=== PATIENT | male | born 1950 ===

== ENCOUNTER 2017-08-05 08:05 | Inpatient (IN) | payer OTHER, MEDICARE ==
[2017-08-05] MEDS ORDERED: Acetaminophen TAB* 325 MG PO PRN (19:02)
[2017-08-05] MEDS ORDERED: Senna TAB PO PRN (19:02)
--- NOTE | 2017-08-05 20:49 | HP ---
ADMISSION HISTORY AND PHYSICAL: DATE OF ADMISSION: 08/05/17 REASON FOR ADMISSION: Right-sided CVA with left hemiparesis. HISTORY OF PRESENT ILLNESS: Corbin Sommer is a 67-year-old male. According to the patient, on 07/31/17, he was at work. It was a Thursday night and work was largely deserted. The patient had eaten a dinner at work and was at the sink washing his dinner plate when his left arm suddenly went numb and he had trouble controlling it. He went to walk back to his office and his left foot caught on the rug and he fell over on to the ground. He had to struggle to get himself back up. The patient decided to drive himself home. He drove the 50 miles back to his house in [place] from his work site. While he was home, he had trouble getting in the front door. He called to his neighbor, the neighbor was able to help him get into the house, but then called 911. The patient was brought to [facility] in [place], [place]. He was already outside the window for tPA administration. 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 DICTATION ENDS ABRUPTLY [id number]/[facility] #: [id number] [facility] CENT[facility]ate
--- NOTE | 2017-08-05 21:31 | HP ---
ADMISSION HISTORY AND PHYSICAL: DATE OF ADMISSION: 08/05/17 REASON FOR ADMISSION: Right-sided CVA with left hemiparesis. HISTORY OF PRESENT ILLNESS: Corbin Sommer is a 67-year-old male. He has little in the way of past medical history. He was at his job at [employer] in [place] on 07/31/17. He had eaten at work late on a Thursday night. He was washing his dishes when he noticed he was having trouble moving his left hand. He decided to walk over to his office and his left foot caught on the rug and he tripped and fell landing on his left side. The patient was able to get up. He decided after getting to his office that he wanted to drive himself home. He drove home about 50 miles and did okay. When he got home; however, he noticed he had decreased hand coordination and could not get the keys to open the front door. He called over to his neighbor. The neighbor helped him into the house and got him to sit down, but then noticed he had left- sided weakness and left facial droop. 911 was called. He was brought to [facility]. By the time he got to the hospital he was outside the window for TPA. He had a CT of his head and neck done, which showed a 50% stenosis of the right PICA but no other defect noted. The next morning he was evaluated by Neurology and MRI of the brain was done. The MRI of the brain showed a subacute to acute infarct in the distribution of the right middle cerebral artery. He continued to have significant dysarthria and left-sided weakness. The patient was started on a soft diet with nectar thick liquids. The patient was put on aspirin a day as well as high dose Lipitor. He had an echo- cardiogram, which did not show any thrombus or chamber defects. He was seen by both Physical and Occupational Therapy and felt to have PT/OT as well as speech therapy needs. The patient was moving to the [facility]. Most of his children are in the area of the [facility]. His family had wanted him to come to [place] to do rehab. He is now being admitted for inpatient rehab so that he might return home to independent living. PAST MEDICAL HISTORY: Not really significant as mentioned previously. CURRENT MEDICATIONS: Include: 1. Baby aspirin every day. 2. Lipitor 80 mg daily. 3. He is on heparin for DVT prophylaxis as well as Ultram for pain in his left rib cage. When he fell, he feels like he might have broken a rib. ALLERGIES: He has no known drug allergies. SOCIAL HISTORY: He was a pipe smoker, rare alcohol use. As mentioned, he was still working for [employer] in [place], but was planning to move to [place] in [place] where he and his have bought a log cabin. It is a two - melida house with several steps to enter. He has a child living in [place] and another child living in the [facility] and one lives in [place]. He has 6 children and 15 grandchildren in total. REVIEW OF SYSTEMS: The patient reports no current shortness of breath or chest pain. PHYSICAL EXAMINATION The patient's temperature is 97.9, blood pressure is 131/78, pulse is 53, respirations 18. HEENT: His extraocular movements are intact. Tongue is midline. Neck was supple with no lymphadenopathy. Lungs sounded clear to auscultation bilaterally. Heart sounds are regular. S1 and S2 are audible. Abdomen is soft and nontender. His extremities - he had fairly normal tone in his left upper extremity and left lower extremity. Peripheral pulses were intact. His neurologic, he was awake, alert, oriented. Muscle strength was about 4/5 in the left arm and left leg. Right side was 5/ 5. His functional exam, he transfers with minimum assist. ASSESSMENT: Cerebrovascular accident with left hemiparesis. PLAN: Our plan is to integrate him into a comprehensive and therapeutic rehab program, we will have the following goals: 1. Physical Therapy will work with the patient. They are going to work on functional transfer training, ambulating training with a walker. 2. Occupational Therapy will see the patient, work on his activities of daily living including toileting and toilet transfers. 3. Speech Therapy will see the patient, work on his difficulty swallowing as well as assess his cognition and dysarthria. 4. SSRIs, including Prozac is indicated. 5. Heparin for DVT prophylaxis. 6. Continue aspirin and Lipitor for secondary stroke prevention. 7. health services director will be closely involved to make sure that any services and equipment that the patient requires are in place prior to discharge. 8. Advance directives: He is a full code. His is his healthcare proxy. 9. Home with appropriate services. ESTIMATED LENGTH OF STAY: 16 to 18 days. [id number]/[facility] #: [id number] BRITANY
[2017-08-05] MEDS: Heparin VIAL(*) 5000 UNITS/ML VIAL (FIVE THOUSAND) SUBCUT SCH (21:47)
[2017-08-05] MEDS: Docusate CAP* 100 MG PO SCH (21:52)
[2017-08-05] MEDS: traMADol TAB* 50 MG PO PRN (21:52)
[2017-08-06] MEDS: Heparin VIAL(*) 5000 UNITS/ML VIAL (FIVE THOUSAND) SUBCUT SCH ×3 (07:12→21:18)
[2017-08-06] MEDS: Multivitamins/Minerals TAB PO SCH (09:02)
[2017-08-06] MEDS: Docusate CAP* 100 MG PO SCH ×2 (09:02→21:18)
[2017-08-06] MEDS: Aspirin EC Low Dose* 81 MG TAB.EC PO SCH (09:02)
[2017-08-06] MEDS: Atorvastatin* 80 MG TAB PO SCH (17:13)
--- NOTE | 2017-08-06 22:27 | PN ---
Progress Note - Progress Note Date of Service: 08/06/17 Note: Corbin was visited. Therapy notes read and reviewed. He was tired after a day of therapy and the travel yesterday, but believes he did okay. May start Prozac soon Current Medications Acetaminophen (Tylenol Tab*) 650 mg PO Q6H PRN PRN Reason: FEVER/PAIN Aspirin (Aspirin Ec Low Dose*) 81 mg PO DAILY [facility] Last Admin: 08/06/17 09:02 Dose: 81 mg Atorvastatin Calcium (Lipitor*) 80 mg PO 1700 [facility] Last Admin: 08/06/17 17:13 Dose: 80 mg Docusate Sodium (Colace Cap*) 100 mg PO BID [facility] Last Admin: 08/06/17 21:18 Dose: 100 mg Heparin Sodium (Porcine) (Heparin Vial(*)) 5,000 units SUBCUT Q8HR [facility] Last Admin: 08/06/17 21:18 Dose: 5,000 units Multivitamins/Minerals (Theragran/Minerals Tab*) 1 tab PO DAILY [facility] Last Admin: 08/06/17 09:02 Dose: 1 tab Senna (Senokot Tab*) 2 tab PO BEDTIME PRN PRN Reason: CONSTIPATION Tramadol HCl (Ultram*) 50 mg PO Q6H PRN PRN Reason: PAIN - MODERATE Last Admin: 08/05/17 21:52 Dose: 50 mg Vital Signs Temp Pulse Resp BP Pulse Ox 97.8 F 62 22 127/70 95 08/06/17 17:39 08/06/17 17:39 08/06/17 17:39 08/06/17 17:39 08/06/17 17:39 EXAM: LUNGS: Clear HEART: Reg rhythm ABDOMEN: Soft, +BS NEUROLOGIC: Left arm about 4/5, left leg 4/5 ASSESSMENT/PLAN: 1. CVA with left hemiparesis: PT/OT/LACTATION SPECIALIST. ASA/Lipitor. Consider Prozac 2. Analgesia: Tramadol for rib pain 3. DVT Prophylaxis: Heparin S/Q 4. Advanced directives: Full Code 5. Dysphagia: Soft diet/thin liquids 6. Decreased cognition: LACTATION SPECIALIST
[2017-08-07] MEDS: Heparin VIAL(*) 5000 UNITS/ML VIAL (FIVE THOUSAND) SUBCUT SCH ×3 (05:05→22:13)
[2017-08-07 07:09] LABS: Hematocrit 41 % (42-52); Hemoglobin 14.3 g/dl (14.0-18.0); Mean Corpuscular HGB Conc 35 g/dl (31-36); Mean Corpuscular Hemoglobin 32 pg (27-31); Mean Corpuscular Volume 92 fL (80-94); Mean Platelet Volume 8 um3 (7.4-10.4); Red Blood Count 4.45 10^6/ul (4.0-5.4); Red Cell Distribution Width 13 % (10.5-15); White Blood Count 7.1 10^3/ul (3.5-10.8)
[2017-08-07 07:26] LABS: Albumin 3.7 g/dL (3.2-5.2); BUN/Creatinine Ratio 22.6 (8-20); Calcium 9.5 mg/dL (8.6-10.3); EGFR African American 116.9 (>60); EGFR Non-African American 90.9 (>60); Globulin 2.7 g/dL (2-4); Total Bilirubin 0.9 mg/dL (0.2-1.0); Total Protein 6.4 g/dL (6.4-8.9)
[2017-08-07] MEDS: Aspirin EC Low Dose* 81 MG TAB.EC PO SCH (08:19)
[2017-08-07] MEDS: Multivitamins/Minerals TAB PO SCH (08:19)
[2017-08-07] MEDS: Docusate CAP* 100 MG PO SCH ×2 (08:19→22:12)
--- NOTE | 2017-08-07 10:29 | PN ---
Progress Note - Progress Note Date of Service: 08/07/17 Note: Nursing and therapy notes reviewed. He thinks he is getting better. No chest pain, shortness of breath or abdominal pain. Some intermittent discomfort around left upper trapezius with muscle tightness. Worried about ability to play guitar. Acetaminophen (Tylenol Tab*) 650 mg PO Q6H PRN PRN Reason: FEVER/PAIN Aspirin (Aspirin Ec Low Dose*) 81 mg PO DAILY [facility] Last Admin: 08/07/17 08:19 Dose: 81 mg Atorvastatin Calcium (Lipitor*) 80 mg PO 1700 [facility] Last Admin: 08/06/17 17:13 Dose: 80 mg Docusate Sodium (Colace Cap*) 100 mg PO BID [facility] Last Admin: 08/07/17 08:19 Dose: 100 mg Heparin Sodium (Porcine) (Heparin Vial(*)) 5,000 units SUBCUT Q8HR [facility] Last Admin: 08/07/17 05:05 Dose: 5,000 units Multivitamins/Minerals (Theragran/Minerals Tab*) 1 tab PO DAILY [facility] Last Admin: 08/07/17 08:19 Dose: 1 tab Senna (Senokot Tab*) 2 tab PO BEDTIME PRN PRN Reason: CONSTIPATION Tramadol HCl (Ultram*) 50 mg PO Q6H PRN PRN Reason: PAIN - MODERATE Last Admin: 08/05/17 21:52 Dose: 50 mg Vital Signs Temp Pulse Resp BP Pulse Ox 98.8 F 49 16 129/83 93 08/07/17 05:03 08/07/17 05:03 08/07/17 05:03 08/07/17 05:03 08/07/17 08:24 EXAM: GEN: no acute distress. alert and appropriate. LUNGS: Clear bilaterally HEART: Regular ABDOMEN: Soft, +BS, non-tender, non-distended NEUROLOGIC: Motor left arm and left leg 4+/5. Normal sensation. Some left neglect. Laboratory Results - last 24 hr 08/07/17 08/07/17 06:47 06:48 WBC 7.1 RBC 4.45 Hgb 14.3 Hct 41 L MCV 92 MCH 32 H MCHC 35 RDW 13 Plt Count 192 MPV 8 Neut % (Auto) 58.5 Lymph % (Auto) 25.4 [place] % (Auto) 10.7 H Eos % (Auto) 4.8 Baso % (Auto) 0.6 Absolute Neuts (auto) 4.2 Absolute Lymphs (auto) 1.8 Absolute Monos (auto) 0.8 Absolute Eos (auto) 0.3 Absolute Basos (auto) 0 Absolute Nucleated RBC 0 Nucleated RBC % 0 Sodium 137 Potassium 4.0 Chloride 105 Carbon Dioxide 26 Anion Gap 6 BUN 19 Creatinine 0.84 Est GFR ( Amer) 116.9 Est GFR (Non-Af Amer) 90.9 BUN/Creatinine Ratio 22.6 H Glucose 87 Calcium 9.5 Total Bilirubin 0.90 AST 32 ALT 32 Alkaline Phosphatase 75 Total Protein 6.4 Albumin 3.7 Globulin 2.7 Albumin/Globulin Ratio 1.4 ASSESSMENT/PLAN: 67yo man right MCA CVA with left hemiplegia and neglect 1. CVA with left hemiparesis: PT/OT/SCRUM PROJECT MANAGER. ASA/Lipitor. Consider Prozac 2. Analgesia: Tramadol for rib pain. Warm pack prn for upper back. 3. Decreased cognition: SCRUM PROJECT MANAGER has picked up for dysarthria and delayed recall. 4. Dysphagia: Soft diet/thin liquids 5. DVT Prophylaxis: Heparin S/Q 6. Advanced directives: Full Code 7. Estimated LOS: interdisciplinary plan of care meeting today
--- NOTE | 2017-08-07 12:14 | PMRUTEAM ---
PMRU: Goals Current Status: Physical Therapy: Current Status Bed Mobility Assistance Independent Transfer Moblility Assistance min A Transfer/Bed Mobility Rolling Walker Recommended Devices Ambulation Assistance min A Ambulation Assistive Devices Rolling Walker Stairs Assistance no tested Stairs Recommended Devices One Rail Number of Stairs 0 Occupational Therapy: Current Status Upper Body Dressing Supervision,Min Assist Lower Body Dressing Total Assist Bathing Max Asst Toileting Mod Assist,Total Assist Eating Supervision Speech therapy current status: mild dysarthria and decreased delayed recall. Social Work: Current Status Discharge Plan return home with home care svs and family support Potential for Family Training pt's is involved and supportive Anticipated Discharge Home Destination Discharge With home care svs and family support Goals: Physical Therapy: Initial Goals Bed Mobility Assistance Independent Transfer Mobility Assistance Independent Transfer/Bed Mobility None,Straight Cane Recommended Devices Ambulation Independent Ambulation Recommended Devices Straight Cane Ambulation Distance 150 Stairs Assistance Independent Stair Recommended Devices Straight Cane,One Rail Number of Stairs 14 Occupational Therapy: Initial Goals Goals to be Completed in (Days 14-21 ) Upper Body Bathing Routine Modified Independent with Lower Body Bathing Routine Modified Independent with Upper Body Dressing Routine Modified Independent with Lower Body Dressing Routine Modified Independent with Toilet Hygeine and Clothing Modified Independent with Management Routine Toilet Transfer Routine Modified Independent with Step-In Shower Transfer Modified Independent with Routine Functional Transfers for ADL Modified Independent with Grooming Routine Independent,Modified Independent with Feeding Routine Independent,Modified Independent with Speech: Goals Speech Goal 1 Motor Speech Speech Evaluation Status Goal 85% intelligibility 1 Speech Current Status Goal 1 85% intelligibility Goal 1 Comments LTO: The patient will increase intelligibility to 95%. ST) The patient will complete motor speech tasks with at least 95% accuracy, including oral motor exercises, diadochokinetic rate tasks, and respiration tasks. Speech Goal 2 Cognitive-Linguistic Speech Goal 2 Evaluation 33% delayed recall, no cues Status Speech Goal 2 Current Status 33% delayed recall, no cues Speech Goal 2 Comments LTO: The patient will complete functional memory tasks with greater than 80% accuracy. ST) The patient will recall 4/4 memory stratgies independently. 1) The patient will complete memory tasks ( including delayed recall) with at least 80% accuracy, with use of compensatory strategies as needed. Social Work: Goals Discharge Plan return home with home care svs and family support Potential for Family Training pt's is involved and supportive Anticipated Discharge Home Destination Discharge With home care svs and family support Care Plan: Care Plan ADL's - Improve/Maintain Start: 08/05/17 18:31 Freq: DAILY Status: Active Target: Protocol: Activity Type Activity Date Activity User E-Sign Co-Sign Detail Recorded Client Recorded Date Recorded By Document 08/06/17 15:47 [id number] 08/06/17 15:48 [id number] 08/06/17 15:47 PMRU Outcome: ADL's/ADL Transfers Orders/Interventions Occupational Therapy Evaluation & Treatment Communication Tool in Patient Room Device Yes Address Deficits Secondary To: CVA Patient to receive OT 5x/wk for 60-120 Therex min/day Self Care Management Group Therapy Neuromuscular ReEducation UE/LE ADL's with Assist Yes: [place] ADL Transfers with Assist Yes: [place] Toileting: Transfers,Clothing Management Yes: [place] ,Hygeine w/Assist Progression Toward Outcome/Goals Progressing Outcome/Goals Met Pt participated well in OT evaluation, motivated to participate to improve function. Pt with goal to improve use of LUE in order to be able to play his guitar . Communication-Improve/Maintain Start: 08/06/17 20:05 Freq: DAILY Status: Active Target: Protocol: Activity Type Activity Date Activity User E-Sign Co-Sign Detail Recorded Client Recorded Date Recorded By Document 08/07/17 11:37 [id number] 08/07/17 11:37 [id number] 08/07/17 11:37 PMRU Outcome: Communication/Cognitive Status Outcome/Goals Other Other Outcomes/Goals 1) The patient will complete motor speech tasks with at least 95% accuracy, including oral motor exercises , diadochokinetic rate tasks, and respiration tasks. 2) The patient will recall 4/4 memory stratgies independently. 3) The patient will complete memory tasks ( including delayed recall) with at least 80% accuracy, with use of compensatory strategies as needed. DVT Prophylaxis- Improve/Maintain Start: 08/05/17 18:31 Freq: DAILY Status: Active Target: Protocol: Activity Type Activity Date Activity User E-Sign Co-Sign Detail Recorded Client Recorded Date Recorded By Document 08/07/17 11:37 [id number] [id number] 08/07/17 11:37 [id number] 08/07/17 11:37 PMRU Outcome: DVT Prophylaxis Outcome/Goals Remains Free of DVT Demonstrates Knowledge of DVT Prevention/ Treatment TEDS Stockings on Every AM, Off at HS Progression Toward Outcome/Goals Progressing Discharge Planning - Improve/Maintain Start: 08/05/17 18:31 Freq: DAILY Status: Active Target: Protocol: Activity Type Activity Date Activity User E-Sign Co-Sign Detail Recorded Client Recorded Date Recorded By Document 08/07/17 11:37 [id number] [id number] 08/07/17 11:37 [id number] 08/07/17 11:37 PMRU Outcome: Discharge Planning Identify Patient Needs yes Update Patient Family No Outcome/Goals Demonstrates Understanding of Discharge Plan Progression Toward Outcome/Goals Progressing /GI-Improve/Maintain Start: 08/05/17 18:31 Freq: DAILY Status: Active Target: Protocol: Activity Type Activity Date Activity User E-Sign Co-Sign Detail Recorded Client Recorded Date Recorded By Document 08/07/17 11:37 [id number] 08/07/17 11:37 [id number] 08/07/17 11:37 PMRU Outcome: Genitourinary/ Gastrointestinal Genitourinary- Outcome/Goals Maintain/ Achieve Urinary Continence Maintain/ Achieve Adequate Urinary Output Gastrointestinal-Outcome/Goals Maintain/ Achieve Bowel Regularity in Accordance with Pt's Baseline Prevent Constipation Progression Toward Outcome/Goals - Progressing Progression Toward Outcome/Goals - GI Progressing Mobility- Improve/Maintain Start: 08/05/17 18:31 Freq: DAILY Status: Active Target: Protocol: Activity Type Activity Date Activity User E-Sign Co-Sign Detail Recorded Client Recorded Date Recorded By Document 08/06/17 17:31 [id number] 08/06/17 17:33 [id number] 08/06/17 17:31 PMRU Outcome: Mobility Physical Therapy Evaluation and Yes Treatment Activity OOB with Assistance Yes WBAT Yes Device Yes Assistance Yes Patient to be seen 5x/wk for 60-120 min/ Therex day for: Mobility Training Gait Training W/C Mobility Balance Outcome/Goals Maintain/ Achieve Baseline Mobility Status Improve Mobility Status Demonstrates Proper Use of Assistive Devices Free from Complications of Immobility Bed Mobility Yes: independent Transfers Yes: independet with/without SC Gait x ft Yes: independent with SC 150' Up/Down Stairs Yes: independet up/down 14 stairs with 1 rail and/or SC Neurological- Improve/Maintain Start: 08/05/17 18:31 Freq: DAILY Status: Active Target: Protocol: Activity Type Activity Date Activity User E-Sign Co-Sign Detail Recorded Client Recorded Date Recorded By Document 08/07/17 11:37 [id number] 08/07/17 11:37 [id number] 08/07/17 11:37 PMRU Outcome: Neurological Weakness/Aphasia Weakness Left Side Outcome/Goals Improve Neurological Status Demonstrate Knowledge of Prevention/Tx of Neuro Disorders/ Complication Maintain/ Improve Strength/ROM Progression Toward Outcome/Goals Progressing Safety- Improve/Maintain Start: 08/05/17 18:31 Freq: DAILY Status: Active Target: Protocol: Activity Type Activity Date Activity User E-Sign Co-Sign Detail Recorded Client Recorded Date Recorded By Document 08/07/17 11:37 [id number] [id number] 08/07/17 11:37 [id number] 08/07/17 11:37 PMRU Outcome: Safety Outcome/Goals Remain Free of Injury or Harm Cooperates with Safety Measures for Least Restrictive Environment Prevent Falls/ Injury Progression Toward Outcome/Goals Progressing Outcome/Goals Met Comment PA in place Medicine Note: Length of Stay: [2.5 weeks] Anticipated Discharge Destination: Home Tentative Discharge Date: [08/25/17] Discharged to: [home]
[2017-08-07] MEDS: Atorvastatin* 80 MG TAB PO SCH (17:11)
[2017-08-07] MEDS: traMADol TAB* 50 MG PO PRN (17:17)
[2017-08-08] MEDS: Heparin VIAL(*) 5000 UNITS/ML VIAL (FIVE THOUSAND) SUBCUT SCH ×3 (05:26→21:47)
[2017-08-08] MEDS: Aspirin EC Low Dose* 81 MG TAB.EC PO SCH (09:28)
[2017-08-08] MEDS: Multivitamins/Minerals TAB PO SCH (09:28)
[2017-08-08] MEDS: Docusate CAP* 100 MG PO SCH ×2 (09:28→21:55)
--- NOTE | 2017-08-08 10:42 | PN ---
Progress Note - Progress Note Date of Service: 08/08/17 Note: Nursing and therapy notes reviewed. Staff notes intermittently incontinent of urine. No chest pain, shortness of breath or abdominal pain. Acetaminophen (Tylenol Tab*) 650 mg PO Q6H PRN PRN Reason: FEVER/PAIN Aspirin (Aspirin Ec Low Dose*) 81 mg PO DAILY [facility] Last Admin: 08/08/17 09:28 Dose: 81 mg Atorvastatin Calcium (Lipitor*) 80 mg PO 1700 [facility] Last Admin: 08/07/17 17:11 Dose: 80 mg Docusate Sodium (Colace Cap*) 100 mg PO BID [facility] Last Admin: 08/08/17 09:28 Dose: Not Given Heparin Sodium (Porcine) (Heparin Vial(*)) 5,000 units SUBCUT Q8HR [facility] Last Admin: 08/08/17 05:26 Dose: 5,000 units Multivitamins/Minerals (Theragran/Minerals Tab*) 1 tab PO DAILY [facility] Last Admin: 08/08/17 09:28 Dose: 1 tab Senna (Senokot Tab*) 2 tab PO BEDTIME PRN PRN Reason: CONSTIPATION Tramadol HCl (Ultram*) 50 mg PO Q6H PRN PRN Reason: PAIN - MODERATE Last Admin: 08/07/17 17:17 Dose: 50 mg Vital Signs Temp Pulse Resp BP Pulse Ox 99.7 F 49 20 119/65 94 08/08/17 05:29 08/08/17 05:29 08/08/17 05:29 08/08/17 05:29 08/08/17 05:29 EXAM: GEN: no acute distress. alert and appropriate. LUNGS: Clear bilaterally HEART: Regular ABDOMEN: Soft, +BS, non-tender, non-distended NEUROLOGIC: Motor left arm and left leg 4+/5. Normal sensation. Some left neglect. ASSESSMENT/PLAN: 67yo man right MCA CVA with left hemiplegia and neglect 1. CVA with left hemiparesis: PT/OT/EDUCATIONAL ADMINISTRATION TEACHER. ASA/Lipitor. Consider Prozac 2. Analgesia: Tramadol for rib pain. Warm pack prn for upper back. 3. Decreased cognition: EDUCATIONAL ADMINISTRATION TEACHER for dysarthria and delayed recall. 4. Dysphagia: Soft diet/thin liquids 5. Urinary incontinence: check UA and PVRs. 6. DVT Prophylaxis: Heparin S/Q 7. Advanced directives: Full Code 8. Estimated LOS: I d/w patient after IPOC meeting yesterday anticipate d/c .
[2017-08-08 16:53] LABS: Urine Bilirubin Negative (Negative); Urine Glucose Negative (Negative); Urine Nitrite Negative (Negative)
[2017-08-08] MEDS: Atorvastatin* 80 MG TAB PO SCH (17:34)
[2017-08-09] MEDS: Heparin VIAL(*) 5000 UNITS/ML VIAL (FIVE THOUSAND) SUBCUT SCH ×3 (05:26→21:46)
[2017-08-09] MEDS: Docusate CAP* 100 MG PO SCH ×2 (08:16→21:47)
[2017-08-09] MEDS: Multivitamins/Minerals TAB PO SCH (08:16)
[2017-08-09] MEDS: Aspirin EC Low Dose* 81 MG TAB.EC PO SCH (08:16)
--- NOTE | 2017-08-09 09:44 | PN ---
Progress Note - Progress Note Date of Service: 08/09/17 Note: Patient still with urinary urgency. Nursing notes reviewed. UA was negative, but no PVRs measured yet. No chest pain, shortness of breath or abdominal pain. Yesterday and today asks if can leave on Sundays to do finances at home and advised he cannot. Vital Signs Temp Pulse Resp BP Pulse Ox 98.2 F 51 20 133/89 95 08/09/17 05:12 08/09/17 05:12 08/09/17 05:12 08/09/17 05:12 08/09/17 05:12 EXAM: GEN: no acute distress. alert and appropriate. LUNGS: Clear bilaterally HEART: Regular ABDOMEN: Soft, +BS, non-tender, non-distended NEUROLOGIC: Motor left arm and left leg 4+/5. Normal sensation. Some left neglect. Laboratory Results - last 24 hr 08/08/17 15:55 Urine Color Yellow Urine Appearance Cloudy Urine pH 7.0 Ur Specific [place] 1.019 Urine Protein Negative Urine Ketones Negative Urine Blood Negative Urine Nitrate Negative Urine Bilirubin Negative Urine Urobilinogen Negative Ur Leukocyte Esterase Negative Urine Glucose Negative ASSESSMENT/PLAN: 67yo man right MCA CVA with left hemiplegia and neglect 1. CVA with left hemiparesis: PT/OT/NIGHT MANAGER. ASA/Lipitor. Consider Prozac 2. Analgesia: Tramadol for rib pain. Warm pack prn for upper back. 3. Decreased cognition: NIGHT MANAGER for dysarthria and delayed recall. 4. Dysphagia: Soft diet/thin liquids 5. Urinary incontinence: check PVRs. 6. DVT Prophylaxis: Heparin S/Q 7. Advanced directives: Full Code 8. Estimated LOS: anticipate d/c 08/25.
[2017-08-09] MEDS: Atorvastatin* 80 MG TAB PO SCH (16:56)
[2017-08-10] MEDS: Heparin VIAL(*) 5000 UNITS/ML VIAL (FIVE THOUSAND) SUBCUT SCH ×3 (04:57→21:48)
[2017-08-10] MEDS: Aspirin EC Low Dose* 81 MG TAB.EC PO SCH (07:29)
[2017-08-10] MEDS: Multivitamins/Minerals TAB PO SCH (07:29)
[2017-08-10] MEDS: Docusate CAP* 100 MG PO SCH ×2 (07:29→21:48)
[2017-08-10] MEDS: Atorvastatin* 80 MG TAB PO SCH (17:35)
[2017-08-11] MEDS: Heparin VIAL(*) 5000 UNITS/ML VIAL (FIVE THOUSAND) SUBCUT SCH ×3 (05:00→21:32)
[2017-08-11] MEDS: Docusate CAP* 100 MG PO SCH ×3 (08:21→20:05)
[2017-08-11] MEDS: Aspirin EC Low Dose* 81 MG TAB.EC PO SCH (08:21)
[2017-08-11] MEDS: Multivitamins/Minerals TAB PO SCH (08:21)
--- NOTE | 2017-08-11 12:33 | PMRUTEAM ---
PMRU: Goals Current Status: Nursing: Current Status Skin Deviations [No Skin Other Issues] Skin Deviation Description [No no skin issues Skin Issues] Physical Therapy: Current Status Bed Mobility Assistance Supervision Transfer Moblility Assistance Supervision,Contact Guard Assist Transfer/Bed Mobility None,Rolling Walker Recommended Devices Transfer Mobility Comment Pt. is able to perform a SPT with or without an assistive device. Ambulation Assistance Supervision,Contact Guard Assist Ambulation Assistive Devices Rolling Walker Number of Feet Patient 300' Ambulated Stairs Assistance Supervision,Contact Guard Assist Stairs Recommended Devices Two Rails Number of Stairs 5 Occupational Therapy: Current Status Upper Body Dressing Supervision,Min Assist Lower Body Dressing Mod Assist Lower Body Dressing Progress starting to learn AE Bathing Contact Guard Assist Bathing Progress with v/c's for safety Toileting Min Assist,Mod Assist Toilet Transfer Contact Guard Assist Shower Transfer Contact Guard Assist Shower Transfer Progress +grab bars Eating Supervision Eating Progress setup prn Rec Therapy: Current Status Summary of Assessment and RT assessment complete and pt. is aware of RT Clinical Impression services. Pt. has leisure material and is open to continued leisure visits. Treatment Goals Pt. will engage in leisure activities while on the unit. Treatment Plan Provide RT services and encourage involvement. Social Work: Current Status Discharge Plan return home with home care svs and family support Potential for Family Training pt's is involved and supportive Anticipated Discharge Home Destination Discharge With home care svs and family support Nutrition: Current Status Monitoring Pt s/p CVA with left hemiparesis. Eating 90-100% of meals; soft solids and thin liquids recommended per SIGN MAKER. Pt eating independently; occ needs containers opened. BMs 08/09; 08/10. Skin intact; [place] 16-19 (low risk for breakdown). Appears to be meeting needs at this time; full nutrition assessment to follow per protocol. Speech: Current Status Assessment Patient progressing with motor speech and memory tasks despite fatigue this date. He will continue to benefit from skilled SIGN MAKER services to increase function and independence of daily tasks. Goals: Physical Therapy: Initial Goals Bed Mobility Assistance Independent Transfer Mobility Assistance Independent Transfer/Bed Mobility None,Straight Cane Recommended Devices Ambulation Independent Ambulation Recommended Devices Straight Cane Ambulation Distance 150 Stairs Assistance Independent Stair Recommended Devices Straight Cane,One Rail Number of Stairs 14 Physical Therapy: Updated Goals Bed Mobility Assistance Independent Transfer Mobility Assistance Independent Transfer/Bed Mobility Rolling Walker Recommended Devices Ambulation Assistance Independent Ambulation Assistive Devices Rolling Walker Ambulation Distance (ft) 300 Stairs Assistance Independent Stairs Recommended Devices One Rail,Two Rails Number of Stairs 12 Occupational Therapy: Initial Goals Goals to be Completed in (Days 12-18 ) Upper Body Bathing Routine Modified Independent with Lower Body Bathing Routine Modified Independent with Upper Body Dressing Routine Modified Independent with Lower Body Dressing Routine Modified Independent with Toilet Hygeine and Clothing Modified Independent with Management Routine Toilet Transfer Routine Modified Independent with Step-In Shower Transfer Modified Independent with Routine Functional Transfers for ADL Modified Independent with Grooming Routine Independent,Modified Independent with Feeding Routine Independent,Modified Independent with Nutrition: Goals Intervention Goals 1. Pt will tolerate least restrictive diet texture without difficulty chewing 2. Intake will remain adequate to maintain stable wt and skin integrity 3. Pt will maintain regular bowel pattern without constipation (or diarrhea) Speech: Goals Speech Goal 1 Motor Speech Speech Evaluation Status Goal 85% intelligibility 1 Speech Current Status Goal 1 See below Goal 1 Comments LTO: The patient will increase intelligibility to 95%. ST) The patient will complete motor speech tasks with at least 95% accuracy, including oral motor exercises, diadochokinetic (DDK) rate tasks, and respiration tasks. Status: - Patient unable to locate previous HEP handout for oral motor exercises. Oral motor exercises targeting labiobuccal strength completed following SIGN MAKER model with success. - DDK: Short paragraph level with 80% accuracy. As paragraph advanced patient demonstrated decreased volume and a decrease in intelligibility . Required continuous cueing for proper breathing to increase vocal volume and to overarticulate to increase intelligibility. Ongoing. Speech Goal 2 Cognitive-Linguistic Speech Goal 2 Evaluation 33% delayed recall, no cues Status Speech Goal 2 Current Status 33% delayed recall, no cues Speech Goal 2 Comments LTO: The patient will complete functional memory tasks with greater than 80% accuracy. ST) The patient will recall 4/4 memory strategies independently. Status: Not directly targeted this date. Ongoing. 2) The patient will complete memory tasks ( including delayed recall) with at least 80% accuracy, with use of compensatory strategies as needed. Status: - Patient read paragraph aloud and answered 5/5 follow-up questions about details in the paragraph with success. Patient stated he was familiar with topic and used previous knowledge to assist him. Will monitor with different topic to accurately assess memory skills. Ongoing. Patient read multiple paragraphs aloud without difficulty scanning or with left attention. Will continue to monitor. Social Work: Goals Discharge Plan return home with home care svs and family support Potential for Family Training pt's is involved and supportive Anticipated Discharge Home Destination Discharge With home care svs and family support Care Plan: Care Plan ADL's - Improve/Maintain Start: 08/05/17 18:31 Freq: DAILY Status: Active Target: Protocol: Activity Type Activity Date Activity User E-Sign Co-Sign Detail Recorded Client Recorded Date Recorded By Document 08/10/17 14:18 [id number] 08/10/17 14:19 [id number] 08/10/17 14:18 PMRU Outcome: ADL's/ADL Transfers Orders/Interventions Occupational Therapy Evaluation & Treatment Communication Tool in Patient Room Device Yes Address Deficits Secondary To: CVA Patient to receive OT 5x/wk for 60-120 Therex min/day Self Care Management Group Therapy Neuromuscular ReEducation UE/LE ADL's with Assist Yes: [place] ADL Transfers with Assist Yes: [place] Toileting: Transfers,Clothing Management Yes: [place] ,Hygeine w/Assist Progression Toward Outcome/Goals Progressing Outcome/Goals Met Pt participated well, balance continues to improve, pt attempting to use LUE, but with difficulty at times during functional tasks due to decreased coordination. Communication-Improve/Maintain Start: 08/06/17 20:05 Freq: DAILY Status: Active Target: Protocol: Activity Type Activity Date Activity User E-Sign Co-Sign Detail Recorded Client Recorded Date Recorded By Document 08/11/17 11:40 [id number] [email or web address] 08/11/17 11:40 [id number] 08/11/17 11:40 PMRU Outcome: Communication/Cognitive Status Outcome/Goals Other Other Outcomes/Goals 1) The patient will complete motor speech tasks with at least 95% accuracy, including oral motor exercises , diadochokinetic rate tasks, and respiration tasks. 2) The patient will recall 4/4 memory stratgies independently. 3) The patient will complete memory tasks ( including delayed recall) with at least 80% accuracy, with use of compensatory strategies as needed. Progression Toward Outcomes/Goals Progressing Outcome/Goals Met Comment 1) Patient unable to locate previous HEP handout for oral motor exercises. Oral motor exercises targeting labiobuccal strength completed following SIGN MAKER model with success. - DDK: Short paragraph level with 80% accuracy. As paragraph advanced patient demonstrated decreased volume and a decrease in intelligibility . Required continuous cueing for proper breathing to increase vocal volume and to overarticulate to increase intelligibility . 3) 100% for paragraph recall of familiar topic DVT Prophylaxis- Improve/Maintain Start: 08/05/17 18:31 Freq: DAILY Status: Active Target: Protocol: Activity Type Activity Date Activity User E-Sign Co-Sign Detail Recorded Client Recorded Date Recorded By Document 08/11/17 00:09 [id number] 08/11/17 00:10 [id number] 08/11/17 00:09 PMRU Outcome: DVT Prophylaxis Outcome/Goals Remains Free of DVT Complies with DVT Prophylaxis /Treatment Demonstrates Knowledge of DVT Prevention/ Treatment TEDS Stockings on Every AM, Off at HS Progression Toward Outcome/Goals Progressing Discharge Planning - Improve/Maintain Start: 08/05/17 18:31 Freq: DAILY Status: Active Target: Protocol: Activity Type Activity Date Activity User E-Sign Co-Sign Detail Recorded Client Recorded Date Recorded By Document 08/11/17 00:09 [id number] 08/11/17 00:10 [id number] 08/11/17 00:09 PMRU Outcome: Discharge Planning Identify Patient Needs yes Update Patient Family No Outcome/Goals Demonstrates Understanding of Discharge Plan Progression Toward Outcome/Goals Progressing /GI-Improve/Maintain Start: 08/05/17 18:31 Freq: DAILY Status: Active Target: Protocol: Activity Type Activity Date Activity User E-Sign Co-Sign Detail Recorded Client Recorded Date Recorded By Document 08/11/17 00:09 [id number] 08/11/17 00:10 [id number] 08/11/17 00:09 PMRU Outcome: Genitourinary/ Gastrointestinal Genitourinary- Outcome/Goals Maintain/ Achieve Urinary Continence Maintain/ Achieve Adequate Urinary Output Gastrointestinal-Outcome/Goals Maintain/ Achieve Bowel Regularity in Accordance with Pt's Baseline Prevent Constipation Laxatives as Ordered Progression Toward Outcome/Goals - Progressing Progression Toward Outcome/Goals - GI Progressing Mobility- Improve/Maintain Start: 08/05/17 18:31 Freq: DAILY Status: Active Target: Protocol: Activity Type Activity Date Activity User E-Sign Co-Sign Detail Recorded Client Recorded Date Recorded By Document 08/08/17 17:23 [id number] 08/08/17 17:23 [id number] 08/08/17 17:23 PMRU Outcome: Mobility Physical Therapy Evaluation and Yes Treatment Activity OOB with Assistance Yes WBAT Yes Device Yes Assistance Yes Patient to be seen 5x/wk for 60-120 min/ Therex day for: Mobility Training Gait Training W/C Mobility Balance Outcome/Goals Maintain/ Achieve Baseline Mobility Status Improve Mobility Status Demonstrates Proper Use of Assistive Devices Free from Complications of Immobility Progression Toward Outcome/Goals Progressing Bed Mobility Yes: independent Transfers Yes: independet with/without SC Gait x ft Yes: independent with SC 150' Up/Down Stairs Yes: independet up/down 14 stairs with 1 rail and/or SC Neurological- Improve/Maintain Start: 08/05/17 18:31 Freq: DAILY Status: Active Target: Protocol: Activity Type Activity Date Activity User E-Sign Co-Sign Detail Recorded Client Recorded Date Recorded By Document 08/11/17 00:09 [id number] 08/11/17 00:10 [id number] 08/11/17 00:09 PMRU Outcome: Neurological Weakness/Aphasia Weakness Left Side Outcome/Goals Improve Neurological Status Demonstrate Knowledge of Prevention/Tx of Neuro Disorders/ Complication Maintain/ Improve Strength/ROM Progression Toward Outcome/Goals Progressing Safety- Improve/Maintain Start: 08/05/17 18:31 Freq: DAILY Status: Active Target: Protocol: Activity Type Activity Date Activity User E-Sign Co-Sign Detail Recorded Client Recorded Date Recorded By Document 08/11/17 00:09 [id number] 08/11/17 00:10 [id number] 08/11/17 00:09 PMRU Outcome: Safety Outcome/Goals Remain Free of Injury or Harm Cooperates with Safety Measures for Least Restrictive Environment Prevent Falls/ Injury Progression Toward Outcome/Goals Progressing Outcome/Goals Met Comment tamper-free PA in place Medicine Note: Length of Stay: 2 weeks Anticipated Discharge Destination: Home Tentative Discharge Date: 08/25/17 Discharged to: Home
--- NOTE | 2017-08-11 16:21 | PN ---
Progress Note - Progress Note Date of Service: 08/11/17 Note: Corbin was visited. He was discussed in interdisciplinary team rounds. He has made pretty good gains so far. He has declined Prozac at present. It was noted that he snuck a cigarette and he requests a nicotine inhaler for cravings. Current Medications Acetaminophen (Tylenol Tab*) 650 mg PO Q6H PRN PRN Reason: FEVER/PAIN Aspirin (Aspirin Ec Low Dose*) 81 mg PO DAILY [facility] Last Admin: 08/11/17 08:21 Dose: 81 mg Atorvastatin Calcium (Lipitor*) 80 mg PO 1700 [facility] Last Admin: 08/10/17 17:35 Dose: 80 mg Device (Nicotine Mouth Piece*) 1 each INH ONCE ONE Stop: 08/11/17 17:01 Docusate Sodium (Colace Cap*) 100 mg PO BID [facility] Last Admin: 08/11/17 08:22 Dose: Not Given Heparin Sodium (Porcine) (Heparin Vial(*)) 5,000 units SUBCUT Q8HR [facility] Last Admin: 08/11/17 14:31 Dose: 5,000 units Multivitamins/Minerals (Theragran/Minerals Tab*) 1 tab PO DAILY [facility] Last Admin: 08/11/17 08:21 Dose: 1 tab Nicotine (Nicotine Inhaler*) 10 mg INH Q2H PRN PRN Reason: CRAVING Senna (Senokot Tab*) 2 tab PO BEDTIME PRN PRN Reason: CONSTIPATION Tramadol HCl (Ultram*) 50 mg PO Q6H PRN PRN Reason: PAIN - MODERATE Last Admin: 08/07/17 17:17 Dose: 50 mg Vital Signs Temp Pulse Resp BP Pulse Ox 99.0 F 55 16 127/80 92 08/11/17 04:59 08/11/17 04:59 08/11/17 04:59 08/11/17 04:59 08/11/17 08:32 EXAM: LUNGS: Clear HEART: Reg rhythm ABDOMEN: Soft, +BS NEUROLOGIC: Left arm about 4/5, left leg 4/5 ASSESSMENT/PLAN: 1. CVA with left hemiparesis: PT/OT/[facility] [employer]. ASA/Lipitor. He is declining Prozac 2. Analgesia: Tramadol for rib pain 3. DVT Prophylaxis: Heparin S/Q 4. Advanced directives: Full Code 5. Dysphagia: Soft diet/thin liquids 6. Decreased cognition: [facility] [employer] 7. Nicotine addiction: will order nicotine inhaler
[2017-08-11] MEDS: Atorvastatin* 80 MG TAB PO SCH (17:12)
[2017-08-11] MEDS: Mouth Piece, Nicotine* 1 EACH CARTRIDGE INH ONE ×2 (17:12→20:04)
[2017-08-11] MEDS: Nicotine Inhaler* 10 MG AMP INH PRN ×2 (17:12→20:04)
[2017-08-11] MEDS ORDERED: Mouth Piece, Nicotine* 1 EACH CARTRIDGE ONE (20:04)
[2017-08-12] MEDS: Heparin VIAL(*) 5000 UNITS/ML VIAL (FIVE THOUSAND) SUBCUT SCH ×3 (05:51→21:02)
[2017-08-12] MEDS: Multivitamins/Minerals TAB PO SCH (09:37)
[2017-08-12] MEDS: Docusate CAP* 100 MG PO SCH ×2 (09:37→21:02)
[2017-08-12] MEDS: Aspirin EC Low Dose* 81 MG TAB.EC PO SCH (09:37)
[2017-08-12] MEDS: Nicotine Inhaler* 10 MG AMP INH PRN ×2 (09:46→16:50)
[2017-08-12] MEDS: Atorvastatin* 80 MG TAB PO SCH (16:50)
--- NOTE | 2017-08-12 18:21 | PN ---
Progress Note - Progress Note Date of Service: 08/12/17 Note: Chavez visited. He believes he is doing much better but now is feeling constrained being in the hospital. I encouraged him to keep working. He is using nicotine replacement. Current Medications Acetaminophen (Tylenol Tab*) 650 mg PO Q6H PRN PRN Reason: FEVER/PAIN Aspirin (Aspirin Ec Low Dose*) 81 mg PO DAILY [facility] Last Admin: 08/12/17 09:37 Dose: 81 mg Atorvastatin Calcium (Lipitor*) 80 mg PO 1700 [facility] Last Admin: 08/12/17 16:50 Dose: 80 mg Docusate Sodium (Colace Cap*) 100 mg PO BID [facility] Last Admin: 08/12/17 09:37 Dose: Not Given Heparin Sodium (Porcine) (Heparin Vial(*)) 5,000 units SUBCUT Q8HR [facility] Last Admin: 08/12/17 13:47 Dose: 5,000 units Hydrocortisone (Hytone Cream 1%*) 1 applic TOPICAL BID [facility] Multivitamins/Minerals (Theragran/Minerals Tab*) 1 tab PO DAILY [facility] Last Admin: 08/12/17 09:37 Dose: 1 tab Nicotine (Nicotine Inhaler*) 10 mg INH Q2H PRN PRN Reason: CRAVING Last Admin: 08/12/17 16:50 Dose: 10 mg Senna (Senokot Tab*) 2 tab PO BEDTIME PRN PRN Reason: CONSTIPATION Tramadol HCl (Ultram*) 50 mg PO Q6H PRN PRN Reason: PAIN - MODERATE Last Admin: 08/07/17 17:17 Dose: 50 mg Vital Signs Temp Pulse Resp BP Pulse Ox 97.3 F 59 18 127/67 96 08/12/17 15:41 08/12/17 15:41 08/12/17 15:41 08/12/17 15:41 08/12/17 15:41 EXAM: LUNGS: Clear HEART: Reg rhythm ABDOMEN: Soft, +BS NEUROLOGIC: Left arm about 4/5, left leg 4/5 ASSESSMENT/PLAN: 1. CVA with left hemiparesis: PT/OT/[employer]. ASA/Lipitor. He is declining Prozac 2. Analgesia: Tramadol for rib pain. Rib pain much improved. May d/c tramadol 3. DVT Prophylaxis: Heparin S/Q 4. Advanced directives: Full Code 5. Dysphagia: Soft diet/thin liquids 6. Decreased cognition: [employer] 7. Nicotine addiction: will order nicotine inhaler
[2017-08-12] MEDS: Hydrocortisone 1% CREAM* 30 GM TUBE TOPICAL SCH (21:00)
[2017-08-13] MEDS: Heparin VIAL(*) 5000 UNITS/ML VIAL (FIVE THOUSAND) SUBCUT SCH ×3 (06:09→21:11)
[2017-08-13] MEDS: Aspirin EC Low Dose* 81 MG TAB.EC PO SCH (08:19)
[2017-08-13] MEDS: Docusate CAP* 100 MG PO SCH ×3 (08:19→21:09)
[2017-08-13] MEDS: Multivitamins/Minerals TAB PO SCH (08:19)
[2017-08-13] MEDS: Hydrocortisone 1% CREAM* 30 GM TUBE TOPICAL SCH ×2 (08:19→21:09)
[2017-08-13] MEDS: Atorvastatin* 80 MG TAB PO SCH (17:03)
--- NOTE | 2017-08-13 19:22 | PN ---
Progress Note - Progress Note Date of Service: 08/13/17 Note: Mr Sommer visited. Therapy notes read and reviewed. He now agrees to try Prozac to possibly augment stroke recovery. He notes that his left arm is much stronger. Pain is less. Current Medications Acetaminophen (Tylenol Tab*) 650 mg PO Q6H PRN PRN Reason: FEVER/PAIN Aspirin (Aspirin Ec Low Dose*) 81 mg PO DAILY [facility] Last Admin: 08/13/17 08:19 Dose: 81 mg Atorvastatin Calcium (Lipitor*) 80 mg PO 1700 [facility] Last Admin: 08/13/17 17:03 Dose: 80 mg Docusate Sodium (Colace Cap*) 100 mg PO BID [facility] Last Admin: 08/13/17 08:20 Dose: Not Given Fluoxetine HCl (Prozac Cap*) 10 mg PO DAILY [facility] Heparin Sodium (Porcine) (Heparin Vial(*)) 5,000 units SUBCUT Q8HR [facility] Last Admin: 08/13/17 14:25 Dose: 5,000 units Hydrocortisone (Hytone Cream 1%*) 1 applic TOPICAL BID [facility] Last Admin: 08/13/17 08:19 Dose: 1 applic Multivitamins/Minerals (Theragran/Minerals Tab*) 1 tab PO DAILY [facility] Last Admin: 08/13/17 08:19 Dose: 1 tab Nicotine (Nicotine Inhaler*) 10 mg INH Q2H PRN PRN Reason: CRAVING Last Admin: 08/12/17 16:50 Dose: 10 mg Senna (Senokot Tab*) 2 tab PO BEDTIME PRN PRN Reason: CONSTIPATION Tramadol HCl (Ultram*) 50 mg PO Q6H PRN PRN Reason: PAIN - MODERATE Last Admin: 08/07/17 17:17 Dose: 50 mg Vital Signs Temp Pulse Resp BP Pulse Ox 97.6 F 54 18 140/81 95 08/13/17 16:29 08/13/17 16:29 08/13/17 18:15 08/13/17 16:29 08/13/17 18:15 EXAM: LUNGS: Clear HEART: Reg rhythm ABDOMEN: Soft, +BS NEUROLOGIC: Left arm about 4/5, left leg 4+/5 ASSESSMENT/PLAN: 1. CVA with left hemiparesis: PT/OT/[facility]. ASA/Lipitor. Will start Prozac 2. Analgesia: Tramadol as needed for rib pain. Rib pain much improved. Will d/c tramadol 3. DVT Prophylaxis: Heparin S/Q 4. Advanced directives: Full Code 5. Dysphagia: Soft diet/thin liquids 6. Decreased cognition: [facility] 7. Nicotine addiction: ordered nicotine inhaler
[2017-08-14] MEDS: Heparin VIAL(*) 5000 UNITS/ML VIAL (FIVE THOUSAND) SUBCUT SCH (04:50)
[2017-08-14 05:01] VITALS: BP 133/75
[2017-08-14 08:09] LABS: Hematocrit 42 % (42-52); Hemoglobin 14.5 g/dl (14.0-18.0); Mean Corpuscular HGB Conc 35 g/dl (31-36); Mean Corpuscular Hemoglobin 33 pg (27-31); Mean Corpuscular Volume 93 fL (80-94); Mean Platelet Volume 8 um3 (7.4-10.4); Red Blood Count 4.46 10^6/ul (4.0-5.4); Red Cell Distribution Width 13 % (10.5-15); White Blood Count 7.8 10^3/ul (3.5-10.8)
[2017-08-14 08:21] LABS: Albumin 3.7 g/dL (3.2-5.2); BUN/Creatinine Ratio 23.9 (8-20); Calcium 9.8 mg/dL (8.6-10.3); EGFR African American 110.8 (>60); EGFR Non-African American 86.1 (>60); Globulin 2.5 g/dL (2-4); Potassium 4.3 mmol/L (3.5-5.0); Total Bilirubin 0.6 mg/dL (0.2-1.0); Total Protein 6.2 g/dL (6.4-8.9)
[2017-08-14] MEDS: Docusate CAP* 100 MG PO SCH ×2 (08:52→08:55)
[2017-08-14] MEDS: Multivitamins/Minerals TAB PO SCH ×2 (08:53→08:55)
[2017-08-14] MEDS: Aspirin EC Low Dose* 81 MG TAB.EC PO SCH (08:53)
[2017-08-14] MEDS: Hydrocortisone 1% CREAM* 30 GM TUBE TOPICAL SCH (08:55)
[2017-08-14] MEDS ORDERED: FLUoxetine CAP* 10 MG PO SCH (09:00)
[2017-08-14] MEDS ORDERED: FLUoxetine CAP* 20 MG PO SCH (10:38)
--- NOTE | 2017-08-15 06:02 | DS ---
CC: Dr. Mcmillan, [address] [place] [address], phone # [phone] * DISCHARGE SUMMARY: DATE OF ADMISSION: 08/05/17 DATE OF DISCHARGE: 08/14/17 DISCHARGE DIAGNOSES: 1. Right-sided cerebrovascular accident with left hemiparesis. 2. Left ribcage injury. 3. Hypercholesteremia. HISTORY OF ILLNESS AND HOSPITAL COURSE: For complete history of the events leading up to his rehab stay, please see the history and physical dictated by me on 08/05/17. While on the rehab unit, the patient remained fairly stable from the medical point of view. Blood pressure was in good control. He was started on Prozac in an attempt to augment neuroma recovery. Unfortunately, the patient did not consent to do this until the date of discharge. However, he will be discharged on Prozac. The patient was found out sneaking outside to have cigarettes. He was counseled to quit smoking. Otherwise, he was medically stable. The patient was seen by Physical Therapy and Occupational Therapy and made good gains with both disciplines. With physical therapy at the time of admission, the patient required contact guard to min assist to a transfer. He was min assist to ambulate 150 feet. With occupational therapy, he was supervision for upper body ADLs, total assistance for lower body ADLs, max assist for bathing, mod assist for grooming, mod assist for toileting, total assist to pull up his pants after toileting. By the time of discharge, the patient was contact guard for toileting, supervision for transfers, supervision to contact guard for ambulating. He was ambulating 300 feet. The patient could also do stairs with supervision. The patient declined to stay over the weekend. He has insisted he be discharged prior to Thursday. As he was being discharged home with his , it was felt that this was a safe discharge plan. The patient was discharged home on 08/14/17. DISCHARGE DIET: Regular. DISCHARGE MEDICATIONS: 1. Lipitor 80 mg daily. 2. Aspirin 81 mg daily. 3. Prozac 20 mg daily. SERVICES AFTER DISCHARGE: Through [facility] in [place]. He will have home nursing, home physical therapy and home, occupational therapy. Follow up with Dr. Mcmillan in [place] on 08/25/17. He will also do outpatient physical therapy when he finishes home healthcare. [id number]/[facility] #: [id number] BRITANY
== END 2017-08-14 12:15 | disposition home health service (06) | DRG 58 ==
LOC: PMRU 15:52
PROVIDERS: ADMIT Physical Medicine & Rehabilitation; ATTEND Physical Medicine & Rehabilitation
PROC: F07Z5ZZ Bed Mobility Treatment (ICD-10-PCS; principal; 2017-08-05)
PROC: F07Z9ZZ Gait Training/Functional Ambulation Treatment (ICD-10-PCS; 2017-08-05)
PROC: F07Z8ZZ Transfer Training Treatment (ICD-10-PCS; 2017-08-05)
PROC: F08Z0ZZ Bathing/Showering Techniques Treatment (ICD-10-PCS; 2017-08-05)
PROC: F08Z1ZZ Dressing Techniques Treatment (ICD-10-PCS; 2017-08-05)
PROC: F08Z3ZZ Feeding/Eating Treatment (ICD-10-PCS; 2017-08-05)
DX: I69.354 Hemiplegia and hemiparesis following cerebral infarction affecting left non-dominant side (principal); I69.391 Dysphagia following cerebral infarction; R13.10 Dysphagia, unspecified; F17.210 Nicotine dependence, cigarettes, uncomplicated; E78.00 Pure hypercholesterolemia, unspecified; R20.0 Anesthesia of skin; R32 Unspecified urinary incontinence
CPT/HCPCS: 36415; 80053; 81003; 85025; A9270-GY; J1644